=== PATIENT | female | born 1985 | race Caucasian/White ===

== ENCOUNTER → 2020-08-18 09:04 | Outpatient (CLI) | payer OTHER, SELFPAY ==
--- NOTE | ~2020-08-18 | US_ITS ---
EXAMINATION: US pelvic complete w TV DATE: 08/18/2020 10:07 INDICATION: Counseling infertility. Comparison:No prior studies for comparison. TECHNIQUE: Multiple transabdominal and endovaginal sonographic images of the pelvis performed. FINDINGS: The uterus measures 6.7 x 3 x 4.1 cm. The endometrial complex measures 7 mm. The right ovary measures 3.5 x 2.2 x 3.6 cm and the left ovary measures 2.7 x 2.1 x 3.1 cm . There a re small follicles in each ovary. There is no free fluid in the pelvis. There are no abnormal masses seen on either side. IMPRESSION: 1. Normal pelvic ultrasound Reviewed, dictated and finalized at location B. IMPRESSION: 1. Normal pelvic ultrasound
== END ==
DX: Z31.69 Encounter for other general counseling and advice on procreation (principal)
CPT/HCPCS: 76830; 76856